=== PATIENT | female | born 2000 | race Caucasian/White ===

== ENCOUNTER 2018-09-26 10:18 | Outpatient (CLI) | payer MEDICAID ==
[2018-09-26 11:22] LABS: ADD UMIC YES; UR ASCORBIC ACID NEGATIVE (NEGATIVE); UR BILIRUBIN (Dip) NEGATIVE (NEGATIVE); UR BLOOD (Dip) 1+ mg/dL (NEGATIVE); UR CLARITY CLEAR (CLEAR); UR COLOR STRAW (YELLOW); UR GLUCOSE (Dip) NEGATIVE (NEGATIVE); UR KETONES (Dip) NEGATIVE (NEGATIVE); UR LEUKOCYTE ESTERASE (Dip) NEGATIVE Leu/ul (NEGATIVE); UR NITRITE (Dip) NEGATIVE (NEGATIVE); UR RBC 0 /HPF (0-5); UR SPECIFIC GRAVITY (Dip) 1.001 (1.003-1.030); UR TOTAL PROTEIN (Dip) NEGATIVE (NEGATIVE); UR UROBILINOGEN (Dip) NEGATIVE (NEGATIVE); UR WBC 0 /HPF (0-5)
== END 2018-09-26 13:24 | disposition home or self-care (01) ==
LOC: OBT 10:18 → L-D 10:19 → OBT 13:24
DX: O26.893 Other specified pregnancy related conditions, third trimester (principal); R10.9 Unspecified abdominal pain; Z3A.33 33 weeks gestation of pregnancy
CPT/HCPCS: 76818; 81001

== ENCOUNTER 2018-11-02 00:35 | Inpatient (IN) | payer MEDICAID ==
[2018-11-02] MEDS ORDERED: LACTATED RINGER'S 1,000 ML IV (01:23)
[2018-11-02] MEDS ORDERED: OXYTOCIN 30 UNITS/LR 500 ML IV ×3 (01:30→04:30)
[2018-11-02] MEDS ORDERED: LIDOCAINE 1% (MPF) 30 ML INJ INJ (01:30)
[2018-11-02] MEDS ORDERED: MINERAL OIL LIGHT 10 ML VIAL TOP ×2 (01:30→03:00)
[2018-11-02] MEDS ORDERED: BUTORPHANOL 2 MG INJ IV (01:30)
[2018-11-02] MEDS ORDERED: CARBOPROST 250 MCG INJ IM ×2 (01:30→04:30)
[2018-11-02] MEDS ORDERED: METHYLERGONOVINE 0.2 MG INJ IM (01:30)
[2018-11-02] MEDS: LACTATED RINGER'S 1,000 ML IV (01:55)
[2018-11-02] MEDS: AMPICILLIN 2 GM/NS (PMX) 100 ML IV (02:16)
[2018-11-02 02:18] LABS: ADD MAN DIFF? NO
[2018-11-02 02:23] LABS: ADD UMIC YES; BASOPHILS % 0.4 % (0.0-2.0); EOSINOPHILS # 0.1 10^3/ul (0.0-0.5); EOSINOPHILS % 0.7 % (0.0-7.0); HEMATOCRIT 33.6 % (37.0-47.0); LYMPHOCYTES # 3.2 10^3/ul (0.8-2.9); LYMPHOCYTES % 31.8 % (18.0-55.0); MEAN CORPUSCULAR HEMOGLOBIN 27.1 pg (29.0-33.0); MEAN CORPUSCULAR HGB CONC 32.7 g/dl (32.0-37.0); MEAN CORPUSCULAR VOLUME 82.8 fl (72.0-104.0); MEAN PLATELET VOLUME 10.9 fl (7.4-10.4); MONOCYTE # 0.8 10^3/ul (0.3-0.9); MONOCYTES % 8.3 % (0.0-13.0); NEUTROPHIL # 5.8 10^3/ul (1.6-7.5); NEUTROPHILS % 58.2 % (30.0-74.0); PLATELET COUNT 271 10^3/UL (140-415); RED BLOOD COUNT 4.06 10^6/ul (4.20-5.40); RED CELL DISTRIBUTION WIDTH 13.3 % (11.5-14.5); UR ASCORBIC ACID NEGATIVE (NEGATIVE); UR BACTERIA FEW /HPF (NONE SEEN); UR BILIRUBIN (Dip) NEGATIVE (NEGATIVE); UR BLOOD (Dip) 3+ mg/dL (NEGATIVE); UR CLARITY CLEAR (CLEAR); UR COLOR YELLOW (YELLOW); UR GLUCOSE (Dip) NEGATIVE (NEGATIVE); UR KETONES (Dip) NEGATIVE (NEGATIVE); UR LEUKOCYTE ESTERASE (Dip) NEGATIVE Leu/ul (NEGATIVE); UR NITRITE (Dip) NEGATIVE (NEGATIVE); UR RBC 23 /HPF (0-5); UR SPECIFIC GRAVITY (Dip) 1.008 (1.003-1.030); UR SQUAMOUS EPITHELIAL CELL FEW /HPF (FEW); UR TOTAL PROTEIN (Dip) NEGATIVE (NEGATIVE); UR UROBILINOGEN (Dip) 1+ mg/dL (NEGATIVE); UR WBC 1 /HPF (0-5)
[2018-11-02 02:23] LABS: WHITE BLOOD COUNT 9.9 10^3/ul (4.8-10.8)
[2018-11-02 02:42] LABS: INR 0.99; PROTIME 13.2 Sec (11.9-14.9)
[2018-11-02 02:43] LABS: PARTIAL THROMBOPLASTIN TIME 30.2 Sec (23.0-35.0)
[2018-11-02] MEDS: BUTORPHANOL 2 MG INJ IV (03:10)
[2018-11-02 03:12] LABS: HEPATITIS B SURFACE ANTIGEN NEGATIVE (NEGATIVE)
[2018-11-02] MEDS: OXYTOCIN 30 UNITS/LR 500 ML IV ×3 (04:11→05:27)
[2018-11-02] MEDS: LACTATED RINGER'S 1,000 ML IV* ×3 (04:28→18:37)
[2018-11-02] MEDS ORDERED: WITCH HAZEL/GLYCERIN PAD PR (04:30)
[2018-11-02] MEDS ORDERED: MISOPROSTOL 200 MCG TAB PR (04:30)
[2018-11-02] MEDS ORDERED: DIBUCAINE 1% 30 GM OINT TOP (04:30)
[2018-11-02] MEDS ORDERED: ACETAMINOPHEN 325 MG TAB PO ×2 (04:30)
[2018-11-02] MEDS ORDERED: MAGNESIUM HYDROXIDE 30ML CUP PO (04:30)
[2018-11-02] MEDS ORDERED: ONDANSETRON 4 MG INJ IV (04:30)
[2018-11-02] MEDS: IBUPROFEN 600 MG TAB PO ×2 (04:46→23:48)
[2018-11-02] MEDS: METHYLERGONOVINE 0.2 MG INJ IM ×2 (05:03→06:14)
[2018-11-02] MEDS ORDERED: AMPICILLIN 1 GM/NS (PMX) 50 ML IV (05:30)
[2018-11-02] MEDS: MISOPROSTOL 200 MCG TAB PR (05:35)
[2018-11-02 18:52] LABS: RAPID PLASMA REAGIN NONREACTIVE (NR)
[2018-11-02] MEDS: SENNA/DOCUSATE NA (8.6MG/50MG) TAB PO (23:47)
[2018-11-02] MEDS: BENZOCAINE 20% 56 ML SPRAY TOP (23:48)
[2018-11-02] MEDS: LANOLIN HPA 1 PKT TOP (23:48)
[2018-11-03] MEDS: LACTATED RINGER'S 1,000 ML IV* (05:49)
[2018-11-03 08:42] LABS: ADD MAN DIFF? NO
[2018-11-03 08:53] LABS: BASOPHILS % 0.3 % (0.0-2.0); EOSINOPHILS # 0.1 10^3/ul (0.0-0.5); EOSINOPHILS % 0.9 % (0.0-7.0); HEMATOCRIT 35.4 % (37.0-47.0); HEMOGLOBIN 11.3 g/dl (12.0-16.0); LYMPHOCYTES # 3.5 10^3/ul (0.8-2.9); LYMPHOCYTES % 27.3 % (18.0-55.0); MEAN CORPUSCULAR HEMOGLOBIN 26.9 pg (29.0-33.0); MEAN CORPUSCULAR HGB CONC 31.9 g/dl (32.0-37.0); MEAN CORPUSCULAR VOLUME 84.3 fl (72.0-104.0); MEAN PLATELET VOLUME 11.2 fl (7.4-10.4); MONOCYTE # 1.1 10^3/ul (0.3-0.9); MONOCYTES % 8.8 % (0.0-13.0); NEUTROPHIL # 7.9 10^3/ul (1.6-7.5); NEUTROPHILS % 62.1 % (30.0-74.0); PLATELET COUNT 263 10^3/UL (140-415); RED CELL DISTRIBUTION WIDTH 13.2 % (11.5-14.5)
[2018-11-03 08:53] LABS: WHITE BLOOD COUNT 12.7 10^3/ul (4.8-10.8)
[2018-11-03] MEDS: SENNA/DOCUSATE NA (8.6MG/50MG) TAB PO ×2 (09:30→23:27)
[2018-11-03] MEDS: IBUPROFEN 600 MG TAB PO (23:27)
[2018-11-04] MEDS: IBUPROFEN 600 MG TAB PO (06:07)
== END 2018-11-04 17:30 | disposition home or self-care (01) | DRG 807 ==
LOC: OBT 00:35 → L-D 00:37 → OBT 01:20 → L-D 01:20 → PP1 09:06
PROC: 10E0XZZ Delivery of Products of Conception, External Approach (ICD-10-PCS; principal; 2018-11-02)
DX: O80 Encounter for full-term uncomplicated delivery (principal); Z37.0 Single live birth; Z3A.38 38 weeks gestation of pregnancy
CPT/HCPCS: 81001; 85025; 85610; 85730; 86592; 86850; 86900; 86901; 87340